=== PATIENT | female | born 1980 | race Caucasian/White ===

== ENCOUNTER → 2016-11-18 | Outpatient (CLI) | payer BC ==
[~2016-11-18] MED LIST: FLAX SEED OIL PO; NAPR1TAB9 PO; PARO1TAB29 PO
--- NOTE | 2016-11-18 13:57 | MAMMOGRAPHY REPORT ---
UNILATERAL LEFT DIGITAL DIAGNOSTIC MAMMOGRAM TOMOSYNTHESIS WITH CAD AND TARGETED LEFT ULTRASOUND: CLINICAL HISTORY: The patient reports a palpable left breast lump for a few weeks. TECHNIQUE: Breast tomosynthesis in addition to standard 2D mammography was performed. Current study was also evaluated with a Computer Aided Detection (CAD) system. Left CC and MLO 2-D and tomosynth esis images were obtained. COMPARISON: No prior exams were available for comparison. BREAST COMPOSITION: The tissue of the left breast is extremely dense, which lowers the sensitivity of mammography. FINDINGS: A triangle marker prado the site of the palpable lump in the left lower inner quadrant. There are no suspicious masses, calcifications, or areas of architectural distortion noted in the le ft breast. Dense tissue is seen in the region of the palpable lump, without a clear mass seen. Targeted ultrasound was performed of the area of the palpable lump pointed out by the patient, in th e left breast at 6:00, 3 cm from the nipple. At the site of the palpable lump there is an ill-defin ed hypoechoic region which appears different from the other adjacent breast tissue, measuring 2.2 x 0.4 x 0.7 cm. While this may represent normal heterogeneous breast tissue, recommend ultrasound-pooja ded core needle biopsy for further evaluation given that the patient feels a palpable lump in this r egion. IMPRESSION: ACR BI-RADS CATEGORY 4: SUSPICIOUS, TARGETED ULTRASOUND ACR BI-RADS CATEGORY 4: SUSPICI OUS Ill-defined hypoechoic region at the site of the palpable lump in the left 6:00 breast. While this m ay represent normal breast tissue, it is indeterminate and ultrasound guided core needle biopsy is r ecommended for further evaluation. A phone call was made to the physician's office to confirm faxed results were received. The patient has been verbally notified of the results. She tentatively scheduled the biopsy before leaving the department. Approximately 10% of breast cancers are not detected with mammography. A negative mammographic repor t should not delay biopsy if a clinically suggestive mass is present. Ashlyn Licona M.D. /:11/18/2016 09:21:55 Softball Umpire: Ladan Matthews, [facility] letter sent: Abnormal 4/5 BI-RADS Code: ACR BI-RADS Category 4: Suspicious Ultrasound BI-RADS: ACR BI-RADS Category 4: Suspic ious
== END | disposition home or self-care (01) ==
LOC: C.MAMM 08:31
PROVIDERS: ATTEND Nurse Practitioner Family
DX: N63 Unspecified lump in breast (principal)

== ENCOUNTER → 2016-11-27 | Outpatient (CLI) | payer BC ==
--- NOTE | 2016-11-27 09:27 | Discharge Instructions ---
Discharge Instructions Procedure Procedure Date: Nov 27, 2016. Reason for visit: Left Mass. Discharge Discharge Date: Nov 27, 2016. Discharge Diagnosis: status post breast biopsy Instructions Activity Recommendations: Additional Limitations (see below) Return to School/Work: no limitations Recommended Home Diet: No Limitations Provider Instructions: ACTIVITY RECOMMENDATIONS: * No lifting, pushing, pulling or exercising the affected side for three days. RETURN TO SCHOOL/WORK: * You may return to work/school after the procedure, but do not perform any strenuous activities for 24 to 48 hours. MEDICATIONS: * Tylenol (two 325 mg) every four to six hours if needed for mild pain (if not allergic to Tylenol). DIET: * Resume previous diet. SPECIAL CARE INSTRUCTIONS: * Keep biopsy site dry for 24 hours. May shower after 24 hours, but do not soak (bathe) incision. * May remove Tegaderm (plastic patch) tomorrow AFTER showering. * Leave the steri-strips on for one week. Allow the steri-strips to fall off by themselves. If not off after one week, you may remove them. You may place a Bandaid crosswise over the strips, if desired. * Apply ice 10 minutes on and 10 minutes off as needed. * Wear a bra at bedtime to sleep more comfortably for 2-3 days. * Your referring physician should have the results after approximately 5 to 7 business days. * Call for unusual bleeding, fever, drainage, etc or if you have any questions call during normal business hours or after hours call Dr Licona, [phone]. FOLLOW UP VISIT: Follow-up with Referring Physician as scheduled. Allergies Coded Allergies: No Known Allergies (Verified Allergy, Unknown, 08/26/03) Sakshi Mobley Recommendations: Call your doctor if: * Temperature above 101 degrees * Pain not relieved by pain medicine ordered * There is increased drainage or redness from any incision * You have any unanswered questions or concerns. Your Doctors Instructions noted above were prepared by provider Ashlyn Licona. Patient Signature Section: Patient Instructions Signature Page Namita Alvarez Patient (or Guardian) Signature/Date: I have read and understand the instructions given to me by my caregivers. Caregiver/RN/Doctor Signature/Date: The above-named patient and/or guardian has received patient instructions on this date. + Original Patient Signature Page (only) stays with chart. Please make copy for patient.
--- NOTE | 2016-11-27 14:58 | MAMMOGRAPHY REPORT ---
ULTRASOUND GUIDED BIOPSY LEFT BREAST: 11/27/2016 CLINICAL HISTORY: Hypoechoic region in the left 6:00 breast. PATIENT CONSENT: The procedure, risks and benefits were discussed with the patient and informed writ ten consent was obtained. A timeout was performed immediately prior to the procedure. PROCEDURE DESCRIPTION: With ultrasound guidance, aseptic technique, and lidocaine as the local anest hetic (1% lidocaine to anesthetize the skin and 1% lidocaine with epinephrine to anesthetize the kayleen per tissues), the hypoechoic region of concern in the left 6:00 breast was sampled 3 times with a 14 -gauge Achieve biopsy needle. Immediately thereafter, with ultrasound guidance, aseptic technique, and lidocaine as the local anesthetic, a metallic localizer clip was placed at the biopsy site. Di rect pressure was applied to the site immediately post procedure and hemostasis was achieved. Postp rocedure unilateral mammograms were performed to confirm clip placement. The patient tolerated the p rocedure without complication. She was given wound care instructions. The specimens were sent to [facility]. COMPARISON: Comparison is made to exams dated: 11/18/2016 mammogram and 11/18/2016 ultrasound - [facility]. IMPRESSION: ULTRASOUND GUIDED BIOPSY Ultrasound guided core needle biopsy of the hypoechoic region in the left 6:00 breast, with clip reinaldo cement. The patient will receive pathology results from her referring provider. Ashlyn Licona M.D. ah/:11/27/2016 09:27:54 Attending Technologist: Vika TAFOYA(Jes)(M), [facility] Sword Swallower: Ashlyn Licona MD, [facility]
--- NOTE | 2016-11-27 14:58 | MAMMOGRAPHY REPORT ---
UNILATERAL LEFT DIGITAL DIAGNOSTIC MAMMOGRAM: 11/27/2016 CLINICAL HISTORY: Status post ultrasound guided biopsy of the left breast. TECHNIQUE: Postprocedural left CC and ML views were obtained. COMPARISON: Comparison is made to exams dated: 11/18/2016 mammogram and 11/18/2016 ultrasound - [facility]. BREAST COMPOSITION: The tissue of the left breast is extremely dense, which lowers the sensitivity of mammography. FINDINGS: A new biopsy marker clip is seen in the left 6:00 breast posteriorly status post ultrasou nd guided biopsy of a hypoechoic region in the left 6:00 breast. No significant postbiopsy hematoma is seen. IMPRESSION: POST PROCEDURE IMAGING FOR MARKER PLACEMENT New biopsy marker clip status post ultrasound-guided biopsy of the left breast. Pathology results a re pending. Approximately 10% of breast cancers are not detected with mammography. A negative mammographic repor t should not delay biopsy if a clinically suggestive mass is present. Ashlyn Licona M.D. ah/:11/27/2016 09:38:55 Director Of Development: Vika TAFOYA(Jes)(Naina), [facility] BI-RADS Code: Post Procedure Imaging For Marker Placement
== END ==
LOC: C.MAMM 08:49
PROVIDERS: ATTEND Nurse Practitioner Family
DX: N63 Unspecified lump in breast (principal)